=== PATIENT | male | born 1995 | race African-American/Black ===

== ENCOUNTER 2019-08-08 20:38 | Emergency (ER) | payer SELFPAY ==
[2019-08-08] MEDS ORDERED: Ketorolac Tromethamine 30 MG/ML VIAL ONE (20:52)
[2019-08-08] MEDS ORDERED: diphenhydrAMINE 25 MG CAP ONE (20:52)
== END 2019-08-08 21:42 | disposition home or self-care (01) ==
LOC: ERS 20:38
DX: M25.572 Pain in left ankle and joints of left foot (principal); F17.210 Nicotine dependence, cigarettes, uncomplicated
CPT/HCPCS: 96372; 99283; J1885; Q0163